=== PATIENT | female | born 1975 | race Caucasian/White ===

== ENCOUNTER 2019-11-27 04:21 | Inpatient (IN) | payer OTHER, MEDICARE, MEDICAID, SELFPAY ==
[2019-11-27] VITALS (11 sets, daily range): BP systolic 116–153; BP diastolic 43–106; PULSE 74–101; RESP 15–20; TEMP 36.7–38.6; O2SAT 97–99; BMI 20.9
--- NOTE | ~2019-11-27 | CT_ITS ---
EXAMINATION: CT brain wo con DATE: 11/28/2019 09:50 INDICATION: Persistent headache for 4 days TECHNIQUE: Computed tomography (CT) of the head was performed without intravenous contrast. The mA wa s adjusted according to patient size. Iterative reconstruction technique was employed. Exam dose: 60 5.33 mGy-cm total exam DLP. COMPARISON: None FINDINGS: No intracranial mass lesion or hemorrhage or cerebrovascular accident is evident. No midlin e shift or mass effect. Normal ventricular size. No subdural or epidural hematoma. No fracture or bone destruction of the cranial vault. The paranasal sinuses and mastoid air cells are normally developed and aerated. IMPRESSION: No significant abnormality Reviewed, dictated and finalized at [facility]. Reviewed, dictated and finalized at location [facility]. IMPRESSION: No significant abnormality
--- NOTE | ~2019-11-27 | US_ITS ---
EXAMINATION: US retroperitoneal comp DATE: 11/29/2019 09:23 INDICATION: Fever. Abdominal pain. TECHNIQUE: Multiple ultrasound grayscale images of the kidneys were obtained. COMPARISON: None. FINDINGS: The right kidney measures 13.6 x 4.5 x 5.7 cm without hydronephrosis The left kidney measures 10.7 x 6.1 x 5.8 cm. There is normal renal cortical echogenicity. The left renal cortex appears mildly thick ened relative to the left kidney with increased vascular flow at the hilum. There are focal very hypo echoic regions at the lower pole of the left kidney which could represent either edematous/necrotic m edullary pyramids or caliectasis without angelica hydronephrosis. No stones identified. The bladder is n ormal with clearly visualized bilateral ureteral jets on color Doppler. IMPRESSION: 1. Swollen and hyperemic left kidney suspicious for pyelonephritis. Central very hypoechoic regions at the lower pole could represent edematous/necrotic medullary pyramids or caliectasis without angelica hydronephrosis. 2. Normal right kidney. Reviewed, dictated and finalized at location A. IMPRESSION: 1. Swollen and hyperemic left kidney suspicious for pyelonephritis. Central ve ry hypoechoic regions at the lower pole could represent edematous/necrotic medu llary pyramids or caliectasis without angelica hydronephrosis. 2. Normal right kidney.
--- NOTE | ~2019-11-27 | CT_ITS ---
EXAMINATION: CT abdomen pelvis w con DATE: 11/27/2019 05:41 INDICATION: Left flank pain. History of kidney abscess, fever. TECHNIQUE: Computed tomography (CT) of the abdomen and pelvis was performed with 100 cc Omnipaque 350 intravenous contrast. Automated exposure control and iterative reconstruction technique were employe d. Exam dose: 252.44 mGy-cm total exam DLP. COMPARISON: None. FINDINGS: The lower lung zones are clear of infiltrate or consolidation. Normal heart size. No pericardial or pleural effusion. The liver, gallbladder, bile ducts, spleen, pancreas, pancreatic duct and adrenal glands appear ike l. Normal caliber of the abdominal aorta. There is a focal approximately 2.7 x 1.4 cm area of diminished enhancement in the anterolateral aspec t of the upper pole of the left kidney, likely an area of pyelonephritis. Uterine fibroids are noted. No intraperitoneal or retroperitoneal or pelvic mass lesion or adenopathy or ascites. No bowel obstru ction or intraperitoneal free air is evident. Degenerative disc disease is noted at L2-3 and L5-S1 in particular. Minimal retrolisthesis at L3-4. No suspicious osteolytic or osteoblastic lesions. IMPRESSION: Probable pyelonephritis the upper pole of the left kidney Uterine fibroids Reviewed, dictated and finalized at [facility]. Reviewed, dictated and finalized at location [facility].
--- NOTE | ~2019-11-27 | XR_ITS ---
XR chest 2V DATE: 11/27/2019 13:04 INDICATION: Cough TECHNIQUE: PA and lateral views COMPARISON: None FINDINGS: Normal heart size. No hilar or mediastinal enlargement. The lungs are hyperinflated but morgan ar of infiltrate or consolidation. No pleural effusion or pulmonary vascular congestion or pneumothor ax. IMPRESSION: Bilateral hyperinflation; no active cardiopulmonary disease Reviewed, dictated and finalized at location [facility].
--- NOTE | 2019-11-27 05:10 | ED.NAVMDI ---
HPI - Nausea/Vomiting/Diarrhea General Chief complaint: Nausea/Vomiting/Diarrhea Stated complaint: fever, vomiting, diarrhea, MURRY Time Seen by Provider: 11/27/19 05:03 History of Present Illness HPI Narrative: Patient presents with her boyfriend for nausea vomiting diarrhea, abdominal pain, and fever. Started 3 days ago, when she went home from work with a migraine headache. Progressed to vomiting and then diarrhea. She says that she just feels bad all over and hurts all over. She has a history of kidney infection with abscess and was hospitalized for 2-week. Surgeries tubal ligation. She smokes cigarettes. MD elicited complaint: nausea, vomiting and diarrhea Onset (ago): day(s) Related Data Allergies Allergy/AdvReac Type Severity Reaction Status Date / Time No Known Allergies Allergy Unknown Verified 06/16/04 18:38 Review of Systems Review of Systems: Narrative: CONSTITUTIONAL: She has fever. EYES: Denies visual changes, redness, or discharge. ENT: Denies rhinorrhea, congestion, sore throat, or otalgia. CARDIOVASCULAR: Denies chest pain, palpitations, or edema. RESPIRATORY: Denies cough or dyspnea. GASTROINTESTINAL: She has abdominal pain, nausea, vomiting, and diarrhea. GENITOURINARY: Denies dysuria or hematuria. SKIN: Denies rash or itching. MUSCULOSKELETAL: Denies back pain, joint pain NEUROLOGIC: Denies headache, numbness, or weakness. PSYCHIATRIC: Denies anxiety or depression. [facility] Past Medical History Medical History History of pyelonephritis Surgical History Surgical History History of tubal ligation Social History Social History (Updated 11/27/19 @ 05:13 by India Contreras MD) Smoking status: Current every day smoker Gender identity (if verbalized by the patient): Female Exam Narrative: Exam Narrative: GENERAL: Cachectic and in no acute distress. HEAD: Normocephalic, atraumatic. EYES: PERRLA and EOMI. ENT: Nares clear, no rhinorrhea or epistaxis. Mucous membranes dry. NECK: Supple. CHEST: Clear to auscultation. No respiratory distress. HEART: Regular rate and rhythm. No murmur heard. Normal peripheral pulses. ABDOMEN: Soft, nontender, nondistended, normal active bowel sounds. EXTREMITIES: Normal range of motion. No edema. SKIN: Warm, dry, no rash. NEURO: No focal deficits. Alert and oriented x3. PSYCH: Appears worried. Course Reevaluation(s) Reevaluation #1: Went in to see the patient and tell her about the pyelonephritis with possible abscess formation, and the plan to admit. She is already feeling much better with just the IV fluids and IV antibiotics. Date: 11/27/19 Time: 07:18 Consultations Consultation #1: Call Dr. Herrera for the admission and he request a urology consult. Date: 11/27/19 Time: 07:17 Consultation #2: Call Dr. Street and he agrees to consult. Date: 11/27/19 Time: 07:18 Vital Signs Vital signs: Vital Signs Temperature 101.5 F H 11/27/19 04:42 Pulse Rate 101 H 11/27/19 04:42 Respiratory Rate 20 11/27/19 04:42 Blood Pressure 153/106 H 11/27/19 04:42 Pulse Oximetry 98 11/27/19 04:42 Temperature 99.1 F 11/27/19 06:04 Pulse Rate 101 H 11/27/19 06:04 Respiratory Rate 18 11/27/19 06:04 Blood Pressure 128/87 11/27/19 06:04 Pulse Oximetry 99 11/27/19 06:04 MDM - Nausea/Vomiting/Diarrhea Medical Records Attestation: I reviewed the patient's medical records. Lab Data Attestation: I reviewed the patient's lab results. Result diagrams: 11/27/19 05:22 11/27/19 05:31 Labs: Lab Results 11/27/19 11/27/19 11/27/19 Range/Units 05:22 05:22 05:22 WBC 28.2 H (4.5-10.0) K/mm3 RBC 4.08 L (4.2-5.4) M/mm3 Hgb 12.5 (12.0-15.0) g/dL Hct 36.8 L (37.0-47.0) % MCV 90.2 (80-100) fl MCH 30.6 (26-34) pg MCHC 34.0 (32-36) g/dl RDW 13.5 (11.5-14.5) % Plt Count 298 (150-375)
[2019-11-27] MEDS: MORPHINE SULFATE 4 MG/ML INJ IV PUSH (05:21)
--- NOTE | 2019-11-27 05:25 | PC.NURSE ---
Just taken down to CT.
[2019-11-27 05:32] LABS: Estimated CRCL calculation 118 ml/min; Estimated Glomerular Filt Rate > 60
[2019-11-27 05:33] LABS: Basophils Absolute Auto 0.1 K/mm3 (0.0-0.1); Basophils Percent Auto 0.5 % (0.2-1.2); Hematocrit 36.8 % (37.0-47.0); Hemoglobin 12.5 g/dL (12.0-15.0); Immature Granulocyte Absolute 0.24 K/mm3 (0.00-0.031); Immature Granulocyte Percent A 0.9 % (0-0.5); Lymphocytes Absolute Auto 1.55 K/mm3 (0.9-3.2); Lymphocytes Percent Auto 5.5 % (18.3-44.2); Mean Corpuscular Hemoglobin 30.6 pg (26-34); Mean Corpuscular Volume 90.2 fl (80-100); Mean Platelet Volume 10.8 fl (7.4-10.4); Monocytes Absolute Auto 1.8 K/mm3 (0.1-0.6); Monocytes Percent Auto 6.5 % (2.6-8.5); Neutrophils Absolute Auto 24.4 K/mm3 (1.3-6.7); Neutrophils Percent Auto 86.6 % (45.5-73.1); Platelet Count Result 298 k/mm3 (150-375); Red Blood Count 4.08 M/mm3 (4.2-5.4); Red Cell Distribution Width 13.5 % (11.5-14.5); White Blood Count 28.2 K/mm3 (4.5-10.0)
[2019-11-27 05:37] LABS: Add Urine Microscopic? YES; Appearance Urine Cloudy (Clear); Bacteria Urine 1+ /hpf; Bilirubin Urine Negative (Negative); Blood Urine 2+ (Negative); Color Urine Yellow (Yellow); Glucose Urine UA Negative (Negative); Ketones Urine 1+ mg/dL (Negative); Leukocyte Esterase Ur 3+ LEU/UL (Negative); Mucus Urine Heavy /lpf; Nitrate Urine Positive (Negative); Protein Urine 2+ mg/dL (Negative); RBC Urine >75 /hpf (0-2); Specific Grav Ur 1.016 (1.001-1.035); Squamous Epithelial Cell Urine Many /hpf (Few); Urobilinogen Urine Negative mg/dL (<2.0); WBC Clumps Urine Present /HPF; WBC Urine >75 /hpf
[2019-11-27 05:41] LABS: Alanine Aminotransferase 14 U/L (4-35); Albumin Level 4.3 g/dL (3.5-5.1); Alkaline Phosphatase 96 U/L (38-126); Aspartate Amino Transferase 23 U/L (14-36); Bilirubin,Total 0.6 mg/dL (0.2-1.3); Blood Urea Nitrogen 5 mg/dL (7-17); Calcium 8.8 mg/dL (8.4-10.2); Carbon Dioxide 29 mmol/L (22-30); Chloride 96 mmol/L (98-107); Estimated CRCL calculation 143 ml/min; Estimated Glomerular Filt Rate > 60; Glucose 111 mg/dL (65-105); Lipase 58 U/L (23-300); Potassium 3.1 mmol/L (3.4-5.0); Sodium 133 mmol/L (137-145)
[2019-11-27] MEDS: SODIUM CHLORIDE 0.9% IV 1,000 ML 999 ML IV CONT (06:00)
--- NOTE | 2019-11-27 07:14 | PC.NURSE ---
This nurse has given report to SCHUYLER Hurst.
--- NOTE | 2019-11-27 08:47 | ADMGEN ---
This patient, Ange Hahn, was admitted to 2 Medical Room 251-01. Patient/family oriented to hospital policies and general routines including ID bracelet, bed and alarms, visiting hours, pain management, procedures, bathroom and other care routines, personal items, smoking policy, room service/diet, and visiting hours. Valuables list has been completed. Information on how to activate the Rapid Response Team has been discussed. Patient/Family are encouraged to report perceived risks to care and to ask questions if they do not understand what they are told or what they should do. Report received from SCHUYLER uHrst.
[2019-11-27] MEDS: SODIUM CHLORIDE 0.9% IV 1,000 ML 125 ML IV CONT ×2 (08:52→17:19)
[2019-11-27] MEDS: ONDANSETRON INJ 4 MG/2 ML VIAL IV PUSH ×2 (10:19→16:18)
[2019-11-27] MEDS: POTASSIUM CHLORIDE 20 MEQ TABLET 40 MEQ PO (10:29)
[2019-11-27 10:54] LABS: Lactic Acid Reflex 1.7 mmol/L (0.7-2.1)
--- NOTE | 2019-11-27 11:08 | PM.IMHP ---
H&P: HPI History of Present Illness Chief complaint: Fever, abdominal pain Narrative: Date of Service 11/27/19 [id number] This supervising physician for this history and physical is Dr. Arleth Brooks. Ange Hahn is a 44 year old female who presented to the ED for evaluation abdominal pain, fevers, nausea and vomiting. She describes that she was in her normal state of health up until 2 days ago with fever of 101.5, fatigue, and onset of sharp left-sided abdominal pain that radiated to her back. She also described associated nausea and vomiting since . She has not been eating or drinking much over last 2 days because of this. She describes a productive cough with some clear phlegm that also began 2 days ago. She denies any chest pain or shortness of breath. She has also had a headache over the last 2 days notes a history of migraine headaches. She describes that her abdominal pain on her left side has been persistent and worsening. 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 She tells me she gets her temperature checked when she gets to work and on was 101.5. She has no other known exposure to COVID positive persons and has not traveled recently. She described when she was younger in 1991, she was hospitalized for almost 2 weeks for abscessed kidney or kidney infection . She notes that over several years, she gets a urinary tract infection about once every 6 months which have been treated as an outpatient by PCP. She describes she has never seen a urologist for her frequent UTIs. No recent antibiotic use. CT abdomen/pelvis demonstrates evidence consistent with pyelonephritis the upper pole of the left kidney, uterine fibroids. Urinalysis on arrival is grossly abnormal with positive nitrite, 3+ leukocyte esterase, > 75 WBC, > 75 RBC. Temp 101.5? in the ED. Routine labs demonstrated leukocytosis 28,200; mild hyponatremia; hypokalemia 3.1. Urine was sent for culture and she was given IV Rocephin and IV Zosyn in the ED. Blood cultures obtained once she got to the floor after antibiotics were started. Urology has been consulted from the ED. She is admitted for management of acute pyelonephritis. Review of Systems Review of Systems: Narrative: She describes left-sided abdominal/flank pain that radiates to her back has improved with pain medications. She describes a headache that has improved after she has received some IV fluids. She reports a mild productive cough without chest pain or shortness of breath. She was having nausea and vomiting over the last 2 days but no vomiting so far this morning. She denies dizziness. Twelve systems were reviewed with pertinent positives and negatives as per HPI. Except as documented, all other systems were reviewed and are negative. [facility] Past Medical History Medical History (Updated 11/27/19 @ 17:31 by Bri Serna PA-C) History of pyelonephritis In 1991 Surgical History Surgical History (Updated 11/27/19 @ 11:21 by Bri Serna PA-C) History of tubal ligation 2000 Family History Family History (Updated 11/27/19 @ 11:23 by Bri Serna PA-C) Mother Kidney abscess Father Hypertension CHF (congestive heart failure) Acute myocardial infarction Passed of acute [place] at age 63; previous to 5 vessel CABG. Social History Social History (Updated 11/27/19 @ 11:34 by Bri Serna PA-C) Social History: Ms. Hahn lives at [place] and [facility] with her and daughter. 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 She denies alcohol use. Formally smoked one-half pack per day of cigarettes times 10 years, now smokes 1 cigarette maybe every 2 weeks. She uses marijuana in edible form about once per week. No other substance use. Her PCP is Dr. Flower. She designates her , Demarcus, as her surrogate decision maker and she is full code status. Smoking packs per day: 0.5 Smoking cigarettes per day:
[2019-11-27] MEDS: MORPHINE SULFATE 2 MG/ML INJ IV PUSH ×2 (13:57→20:28)
[2019-11-27] MEDS: ACETAMINOPHEN 325 MG TABLET 650 MG PO (17:58)
[2019-11-27] MEDS: NICOTINE (*PBKC) 14 MG PATCH 1 PATCH TRANSDERM (21:39)
[2019-11-28] VITALS (13 sets, daily range): BP systolic 112–136; BP diastolic 57–87; PULSE 75–100; RESP 16–18; TEMP 36.4–37.7; O2SAT 94–99
[2019-11-28] MEDS: ONDANSETRON INJ 4 MG/2 ML VIAL IV PUSH ×2 (02:02→09:21)
[2019-11-28] MEDS: ACETAMINOPHEN 325 MG TABLET 650 MG PO (02:02)
[2019-11-28 04:47] LABS: Hematocrit 32.9 % (37.0-47.0); Mean Corpuscular HGB Conc 33.4 g/dl (32-36); Mean Corpuscular Hemoglobin 30.8 pg (26-34); Mean Corpuscular Volume 92.2 fl (80-100); Mean Platelet Volume 10.2 fl (7.4-10.4); Platelet Count Result 256 k/mm3 (150-375); Red Blood Count 3.57 M/mm3 (4.2-5.4); Red Cell Distribution Width 13.4 % (11.5-14.5); White Blood Count 21.5 K/mm3 (4.5-10.0)
[2019-11-28 05:03] LABS: Blood Urea Nitrogen 2 mg/dL (7-17); Calcium 8.6 mg/dL (8.4-10.2); Carbon Dioxide 31 mmol/L (22-30); Chloride 100 mmol/L (98-107); Estimated CRCL calculation 141 ml/min; Estimated Glomerular Filt Rate > 60; Glucose 105 mg/dL (65-105); Magnesium 2.1 mg/dL (1.6-2.3); Phosphorus 3.7 mg/dL (2.5-4.5); Sodium 134 mmol/L (137-145)
[2019-11-28] MEDS: SODIUM CHLORIDE 0.9% IV 1,000 ML 125 ML IV CONT (05:07)
[2019-11-28] MEDS: MORPHINE SULFATE 2 MG/ML INJ IV PUSH (05:11)
[2019-11-28] MEDS: POTASSIUM CHLORIDE 20 MEQ TABLET 60 MEQ PO (08:41)
[2019-11-28] MEDS: NICOTINE (*PBKC) 14 MG PATCH 1 PATCH TRANSDERM (08:41)
--- NOTE | 2019-11-28 09:38 | PM.IMPN ---
Progress Note: A&P Assessment and Plan (1) Pyelonephritis: Code(s): N12 - Tubulo-interstitial nephritis, not specified as acute or chronic Status: Acute Assessment and Plan: Grossly abnormal urinalysis and CT findings consistent with acute pyelonephritis. Discussed with radiologist yesterday who describes an small spot in question resembles an area of pyelonephritis and no fluid collection or abscess formation is appreciated. Continue broad-spectrum antibiotics with IV Zosyn with urine and blood cultures pending. Continue supportive care with IV hydration, antiemetics, antipyretics. Urology consulted - appreciate recommendations. (2) Sepsis: Code(s): A41.9 - Sepsis, unspecified organism Status: Acute Assessment and Plan: Sepsis criteria is met on arrival with leukocytosis, fever, mild tachycardia. Suspected source is urinary, see above. WBC improving. Monitor vital signs and urine output. (3) Hypokalemia: Code(s): E87.6 - Hypokalemia Status: Acute Assessment and Plan: Potassium 3.0 and replaced. Magnesium is normal. Will monitor. (4) Headache: Code(s): R51 - Headache Status: Acute Assessment and Plan: May be related to acute illness/dehydration, but since has been persistent without much relief will obtain CT brain to ensure no other etiology. Negative meningeal signs, no focal deficits, no dizziness. Continue supportive care. Edit: CT brain with no acute intracranial abnormalities. Subjective Date/time seen: 11/28/19 09:00 Interval history: Ms. Hahn is a 44yo F admitted for acute pyelonephritis. She reports feeling nauseous this morning but was able to eat a little breakfast. Some dry heaving last night. Overall she is feeling poorly but says she feels improved compared to yesterday. She denies chest pain or shortness of breath. She notices she is wheezing and feels like she has mucus she needs to cough out. Her L flank pain is a little better than yesterday. She describes a headache that has been constant over the last 4 days and not really improving. No vision changes, dizziness, or focal weakness. Review of Systems Review of Systems: Narrative: Twelve systems were reviewed with pertinent positives and negatives as per HPI. Exam Narrative: Exam Narrative: General: Female resting in bed in no acute distress. HEENT: Normocephalic, atraumatic, EOMI, PERRL, oral mucosa moist. Neck: Supple. Negative meningeal signs. Chest: Expiratory wheezes JUDITH, good air movement, respirations are even and nonlabored. Tolerating room air. Heart: Rate and rhythm regular. Abdomen: Soft, non-distended, tenderness to palpation of left flank without guarding, bowel sounds present. CVA tenderness left +. Extremities: Peripheral pulses intact. No edema, clubbing, or cyanosis. Neurologic: Alert and oriented. Speech is clear. No focal neurological deficits appreciated. Objective Data Vital Signs Vital Signs: Last Vital Signs Temp 98.3 F 11/28/19 05:58 Pulse 88 11/28/19 05:58 Resp 16 11/28/19 05:58 BP 128/71 11/28/19 05:58 Pulse Ox 99 11/28/19 05:58 Intake/Output Intake/Output: Intake & Output 11/25/19 11/26/19 11/27/19 11/28/19 23:59 23:59 23:59 23:59 Intake Total 4960 1750 Output Total 600 900 Balance 4360 850 Meds/Results Medications: Active Medications Generic Name Dose Route Start Last Admin Trade Name Freq PRN Reason Stop Dose Admin Acetaminophen 650 mg 11/27/19 10:11/28/19 02:02 Tylenol Tablet PO 650 mg Q4H PRN Administration Mild Pain (1-3) or Fever Hydrocodone Bitart/Acetaminophen 1 tab 11/27/19 10:02 11/27/19 10:19 [place] 5-325 Mg PO 1 tab Q4H PRN Administration Pain Rated 4-6 Albuterol 2.5 mg 11/28/19 14:00 Albuterol Sulf Neb 2.5mg/0.5ml INHALATIO
[2019-11-28] MEDS: ALBUTEROL SULFATE NEB 2.5 MG/0.5 ML INH INHALATION (14:46)
--- NOTE | 2019-11-28 15:24 | WPDURCON ---
Assessment and Plan Additional Plan Continue antibiotics . Await sensitivities. WBC is falling so she will not likely need a percutaneous drainage procedure. I have ordered a renal u/s for Friday to show us if the lobar nephronia is resolving Urology Consult Note HPI Date Seen: 11/28/19 Requesting Physician: Tereso Herrera MD Primary Care Provider: Neal Flower, MD Consult Narrative Narrative: Ange Hahn is a 44 year old female with left flank pain and UTI. CT shows abnormal flow to parenchyma. n 1991 she had a renal abscess and saw Perinetti at [place]. Left kidney that time also. Admitted with WBC 28K Review of Systems Constitutional: Constitutional: Reports chills, Denies fatigue and Denies weakness Eyes: Eyes: Reports no additional eye complaints ENT: Denies nasal congestion Cardiovascular: Cardiovascular: Reports no additional cardiovascular complaints Respiratory: Respiratory: Reports no additional respiratory complaints Gastrointestinal: Gastrointestinal: Reports no additional gastrointestinal complaints Genitourinary: Genitourinary: Reports flank pain and Denies urinary incontinence [facility] Past Medical History Medical History (Updated 11/28/19 @ 09:43 by Bri Serna PA-C) History of pyelonephritis In 1991 Surgical History Surgical History (Updated 11/27/19 @ 11:21 by Bri Serna PA-C) History of tubal ligation 2000 Family History Family History (Updated 11/27/19 @ 11:23 by Bri Serna PA-C) Mother Kidney abscess Father Hypertension CHF (congestive heart failure) Acute myocardial infarction Passed of acute [place] at age 63; previous to 5 vessel CABG. Social History Social History (Updated 11/27/19 @ 11:34 by Bri Serna PA-C) Social History: Ms. Hahn lives at home and [facility] with her and daughter. 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 She denies alcohol use. Formally smoked one-half pack per day of cigarettes times 10 years, now smokes 1 cigarette maybe every 2 weeks. She uses marijuana in edible form about once per week. No other substance use. Her PCP is Dr. Flower. She designates her , Demarcus, as her surrogate decision maker and she is full code status. Smoking packs per day: 0.5 Smoking cigarettes per day: 10.0 Years smoked: 6 Smoking pack-years: 3.00 Smoking status: Current some day smoker Tobacco type: cigarettes and e-cigarettes/vaping Alcohol intake: never Substance use: current Substance use type: marijuana Living arrangements: with family Gender identity (if verbalized by the patient): Female Spiritual care concerns: No Meds Home Medications and Allergies Home Medications Medication Instructions Recorded Confirmed Type multivit with min-folic acid 1 mcg PO BID 11/27/19 11/27/19 History [Adult Multivitamin Gummies] Allergies Allergy/AdvReac Type Severity Reaction Status Date / Time No Known Allergies Allergy Unknown Verified 06/16/04 18:38 Vital Signs Vital Signs - 24 hr 11/27/19 17:49 11/27/19 17:58 11/27/19 18:00 Temperature 38.2 C H 38.2 C H Pulse Rate 92 Respiratory Rate 16 Blood Pressure 125/77 Pulse Oximetry 98 11/27/19 18:53 11/27/19 19:03 11/27/19 22:03 Temperature 37.8 C H 37.8 C H 36.7 C Pulse Rate 74 Respiratory Rate 18 Blood Pressure 128/82 Pulse Oximetry 97 11/28/19 02:00 11/28/19 02:02 11/28/19 03:02 Temperature 37.7 C H 37.7 C H 36.9 C Pulse Rate 100 Respiratory Rate 18 Blood Pressure 134/87 Pulse Oximetry 97 11/28/19 03:04 11/28/19 05:58 11/28/19 10:00 Temperature 36.9 C 36.8 C 36.8 C Pulse Rate 88 84 Respiratory Rate 16 17 Blood Pressure 128/71 136/81 Pulse Oximetry 99 97 11/28/19 14:00 11/28/19 14:48 11/28/19 14:54 Temperature 36.4 C Pulse Rate 83 77 80 Respiratory Rate 16 18 18 Blood Pressure 112/57 L Pulse Oximetry 94 Exam Const: General:
[2019-11-28] MEDS: SODIUM CHLORIDE 0.9% IV 1,000 ML 100 ML IV CONT (15:37)
--- NOTE | 2019-11-28 15:47 | PC.NURSE ---
The patient needs to be NPO for 8-12 hours before the US. Will make patient NPO after midnight and may resume diet after US per Dr. Street.
--- NOTE | 2019-11-28 20:50 | CONS_ITS ---
DATE OF CONSULTATION: HISTORY OF PRESENT ILLNESS: This is a patient familiar over [facility]. She has also been treated at [place] by Dr. Yip for renal abscess 30 years ago. At the present time, [place] [address], and fever with left flank pain. Her CT scan revealed an abnormal area of diminished enhancement in the upper pole of the left kidney. In 1991, she had a similar episode that ultimately did not require drainage, but it was the left kidney then as well. She has urine culture pending at this time and is not currently febrile. She is feeling much better. Her white count has fallen to 21,000 today. Urology was consulted in case of the lobar nephronia turns to abscess, so we could initiate a drainage procedure by Interventional Radiology. PAST SURGICAL HISTORY: Tubal ligation. FAMILY HISTORY: Positive for kidney abscess in her mother, congestive heart failure in her father, myocardial infarction in her father, hypertension in her father and additionally, Dr. Lovett worked on him a number of times. She estimated 20 different bladder tumor surgeries. SOCIAL HISTORY: She lives in [place] with her and daughter. 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 She smokes about 1 cigarette every 2 weeks now. She has edible marijuana. Please see her written note for further details. PHYSICAL EXAMINATION: GENERAL: Pleasant white female, in no distress. Oriented with appropriate affect. HEENT: Extraocular movements are intact. No skin lesions. No peripheral edema. LUNGS: Respirations even and nonlabored. ABDOMEN: Benign. She does have significant left-sided costovertebral angle tenderness at this time. There is no right-sided costovertebral angle tenderness. The abdomen is benign. IMAGING DATA: CT is reviewed as are the labs. CURRENT MEDICINES: Zosyn. She takes Nicoderm patches. She is on guanfacine and albuterol. She has p.r.n. hydrocodone. IMPRESSION: This woman is admitted with a left flank pain, probably a severe pyelo. 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 PLAN: We will schedule repeat imaging study with an ultrasound tomorrow to be sure this is not abscessed, but she seems to be clinically improving with IV fluids and antibiotics. Her white count is falling and I presume we will have something we can put her on as far as an oral antibiotic when she goes home. I will alert Dr. Lovett to her present scene and he can see her tomorrow that is Friday. MANNIE BROWN M.D. CUTTER GAS CUTTER GAS D I [place]: [place]
[2019-11-29] VITALS (10 sets, daily range): BP systolic 126–139; BP diastolic 78–91; PULSE 52–89; RESP 16–20; TEMP 36.8–37.3; O2SAT 98–100
[2019-11-29] MEDS: ONDANSETRON INJ 4 MG/2 ML VIAL IV PUSH ×3 (01:39→20:04)
[2019-11-29] MEDS: MORPHINE SULFATE 2 MG/ML INJ IV PUSH ×2 (01:39→09:30)
[2019-11-29] MEDS: SODIUM CHLORIDE 0.9% IV 1,000 ML 100 ML IV CONT (01:47)
[2019-11-29 04:34] LABS: Basophils Percent Auto 0.2 % (0.2-1.2); Eosinophils Percent Auto 0.2 % (0-4.4); Hematocrit 28.6 % (37.0-47.0); Hemoglobin 9.7 g/dL (12.0-15.0); Immature Granulocyte Absolute 0.05 K/mm3 (0.00-0.031); Immature Granulocyte Percent A 0.3 % (0-0.5); Lymphocytes Absolute Auto 1.93 K/mm3 (0.9-3.2); Lymphocytes Percent Auto 13.2 % (18.3-44.2); Mean Corpuscular HGB Conc 33.9 g/dl (32-36); Mean Corpuscular Hemoglobin 30.6 pg (26-34); Mean Corpuscular Volume 90.2 fl (80-100); Mean Platelet Volume 10.3 fl (7.4-10.4); Monocytes Absolute Auto 1.7 K/mm3 (0.1-0.6); Monocytes Percent Auto 11.5 % (2.6-8.5); Neutrophils Absolute Auto 10.9 K/mm3 (1.3-6.7); Neutrophils Percent Auto 74.6 % (45.5-73.1); Platelet Count Result 223 k/mm3 (150-375); Red Blood Count 3.17 M/mm3 (4.2-5.4); Red Cell Distribution Width 13.4 % (11.5-14.5); White Blood Count 14.7 K/mm3 (4.5-10.0)
[2019-11-29 05:03] LABS: Calcium 7.8 mg/dL (8.4-10.2); Carbon Dioxide 29 mmol/L (22-30); Chloride 100 mmol/L (98-107); Estimated CRCL calculation 141 ml/min; Estimated Glomerular Filt Rate > 60; Glucose 103 mg/dL (65-105); Magnesium 1.9 mg/dL (1.6-2.3); Potassium 2.8 mmol/L (3.4-5.0); Sodium 134 mmol/L (137-145)
[2019-11-29 05:07] LABS: Blood Urea Nitrogen < 2 mg/dL (7-17)
[2019-11-29] MEDS: ALBUTEROL SULFATE NEB 2.5 MG/0.5 ML INH INHALATION (08:05)
[2019-11-29] MEDS: NICOTINE (*PBKC) 14 MG PATCH 1 PATCH TRANSDERM (09:26)
[2019-11-29 11:39] LABS: Potassium 2.9 mmol/L (3.4-5.0)
--- NOTE | 2019-11-29 13:03 | PM.IMPN ---
Progress Note: A&P Assessment and Plan (1) Pyelonephritis: Code(s): N12 - Tubulo-interstitial nephritis, not specified as acute or chronic Status: Acute Assessment and Plan: CT findings consistent with acute pyelonephritis. Continue IV Zosyn; urine culture grew E coli; blood cultures pending with no growth to date. Continue supportive care with antiemetics, Tylenol for fever. Urology consulted - appreciate recommendations. Ultrasound noted. (2) Sepsis: Qualifiers: Sepsis acute organ dysfunction status: unspecified Sepsis type: sepsis due to unspecified organism Qualified Code(s): A41.9 - Sepsis, unspecified organism Code(s): A41.9 - Sepsis, unspecified organism Status: Acute Assessment and Plan: Sepsis criteria is met on arrival with leukocytosis, fever, mild tachycardia. Suspected source is urinary, see above. WBC improving. Monitor vital signs and urine output. (3) Hypokalemia: Code(s): E87.6 - Hypokalemia Status: Acute Assessment and Plan: Potassium 2.8 this morning and replaced IV and PO. Repeat again this afternoon. Subjective Date/time seen: 11/29/19 1215 Interval history: Ms. Hahn is a 44yo F admitted for acute pyelonephritis. Still having significant left flank/CVA tenderness now improved this afternoon with some morphine. She had some more mild nausea this morning without vomiting now improved after zofran. She thinks her wheezing has improved some. Her headache has improved. Review of Systems Review of Systems: Narrative: Twelve systems were reviewed with pertinent positives and negatives as per HPI. Exam Narrative: Exam Narrative: General: Female resting in bed in no acute distress. HEENT: Normocephalic, atraumatic, EOMI, oral mucosa moist. Neck: Supple. Negative meningeal signs. Chest: Expiratory wheezes JUDITH improved from yesterday, good air movement, respirations are even and nonlabored. Tolerating room air. Heart: Rate and rhythm regular. Abdomen: Soft, non-distended, tenderness to palpation of left flank without guarding, bowel sounds present. CVA tenderness left +. Extremities: Peripheral pulses intact. No edema, clubbing, or cyanosis. Neurologic: Alert and oriented. Speech is clear. No focal neurological deficits appreciated. Objective Data Vital Signs Vital Signs: Last Vital Signs Temp 99.2 F 11/29/19 10:00 Pulse 82 11/29/19 10:00 Resp 18 11/29/19 10:00 BP 136/91 H 11/29/19 10:00 Pulse Ox 99 11/29/19 10:00 Intake/Output Intake/Output: Intake & Output 11/26/19 11/27/19 11/28/19 11/29/19 23:59 23:59 23:59 23:59 Intake Total 4960 4733 1662 Output Total 600 2525 1150 Balance 4360 2208 512 Meds/Results Medications: Active Medications Generic Name Dose Route Start Last Admin Trade Name Freq PRN Reason Stop Dose Admin Acetaminophen 650 mg 11/27/19 10:02 11/28/19 02:02 Tylenol Tablet PO 650 mg Q4H PRN Administration Mild Pain (1-3) or Fever Hydrocodone Bitart/Acetaminophen 1 tab 11/27/19 10:02 11/28/19 17:04 Eleele 5-325 Mg PO 1 tab Q4H PRN Administration Pain Rated 4-6 Albuterol 2.5 mg 11/28/19 14:00 11/29/19 08:05 Albuterol Sulf Neb 2.5mg/0.5ml INHALATION 2.5 mg Q6HRT MARISSA Administration Guaifenesin 600 mg 11/28/19 09:10 11/29/19 09:26 Mucinex 12 Hr Tab PO 600 mg Q12HR MARISSA Administration Sodium Chloride 1,000 mls @ 100 mls/hr 11/27/19 07:15 11/29/19 01:47 Normal Saline Iv IV CONT 100 mls/hr .Q10H MARISSA Administration Piperacillin/Tazobactam/Dextrose 3.375 gm in 50 mls @ 100 mls/hr 11/27/19 12:00 11/29/19 11:42 Zosyn 3.375 Gm/D5w 50ml Pm IVPB Infused Q6HR MARISSA Infusion Morphine Sulfate 2 mg 11/27/19 10:02 11/29/19 09:30 Morphine Sulfate Inj IV PUSH 2 mg Q4H PRN Administration Pain Rated 7-10 Nicotine 1 p
--- NOTE | 2019-11-29 13:06 | WPDUROPN2 ---
Progress Note: A&P Assessment and Plan (1) Pyelonephritis: Code(s): N12 - Tubulo-interstitial nephritis, not specified as acute or chronic Status: Acute Assessment and Plan: Urine culture: e. coli / blood cultures: no growth thus far Fever and leukocytosis responding nicely. If blood cultures remain neg., possibly home Tue. on FQ x10 days. Subjective Subjective Date/Time Seen: 11/29/19 13:06 Left flank pain Review of Systems Constitutional: Constitutional: Denies chills, Denies fatigue, Denies fever(s) and Denies headache(s) Eyes: Eyes: Denies blurry vision ENT: Denies vertigo, Denies dizziness, Denies headache(s) and Denies sore throat Cardiovascular: Cardiovascular: Denies chest pain, Denies syncope, Denies lightheadedness, Denies palpitations, Denies dyspnea and Denies dyspnea on exertion Respiratory: Respiratory: Denies hemoptysis, Denies dyspnea and Denies dyspnea on exertion Gastrointestinal: Gastrointestinal: Denies melena, Denies bloating, Denies hematochezia, Denies change in bowel habits, Denies change in stool character, Denies constipation, Denies diarrhea and Denies vomiting Genitourinary: Genitourinary: Denies hematuria, Denies urinary frequency, Denies dysuria, Denies urinary hesitancy and Denies urinary urgency Integumentary/Breasts: Skin/Breast: Denies pruritus, Denies lesions and Denies rash Neurologic: Denies confusion, Denies vertigo, Denies dizziness, Denies syncope and Denies headache(s) Psychiatric: Psychiatric: Denies anxiety, Denies change in appetite and Denies confusion Endocrine: Endocrine: Denies fatigue and Denies palpitations Exam Const: General: no acute distress Resp: Effort & Inspection: normal respiratory effort GI: Inspection: non-distended GI Palp: No abdominal tenderness and No Guarding due to palpation present (GI) Auscultation: normal bowel sounds Objective Data Vital Signs Vital Signs: Vital Signs - 24 hr 11/28/19 14:00 11/28/19 14:48 11/28/19 14:54 Temperature 97.6 F Pulse Rate 83 77 80 Respiratory Rate 16 18 18 Blood Pressure 112/57 L Pulse Oximetry 94 11/28/19 18:00 11/28/19 20:30 11/28/19 20:37 Temperature 98.7 F Pulse Rate 85 77 79 Respiratory Rate 17 18 18 Blood Pressure 126/70 Pulse Oximetry 98 11/28/19 21:41 11/29/19 01:51 11/29/19 05:43 Temperature 98.3 F 98.3 F 98.7 F Pulse Rate 75 52 L 72 Respiratory Rate 16 18 16 Blood Pressure 125/79 137/78 126/81 Pulse Oximetry 98 98 99 11/29/19 08:05 11/29/19 08:15 11/29/19 10:00 Temperature 99.2 F Pulse Rate 73 77 82 Respiratory Rate 18 18 18 Blood Pressure 136/91 H Pulse Oximetry 99 Intake/Output Intake/Output: Intake & Output 11/26/19 11/27/19 11/28/19 11/29/19 23:59 23:59 23:59 23:59 Intake Total 4960 4733 1662 Output Total 600 2525 1150 Balance 4360 2208 512 Meds/Results Medications: Active Medications Generic Name Dose Route Start Last Admin Trade Name Freq PRN Reason Stop Dose Admin Acetaminophen 650 mg 11/27/19 10:02 11/28/19 02:02 Tylenol Tablet PO 650 mg Q4H PRN Administration Mild Pain (1-3) or Fever Hydrocodone Bitart/Acetaminophen 1 tab 11/27/19 10:02 11/28/19 17:04 [place] 5-325 Mg PO 1 tab Q4H PRN Administration Pain Rated 4-6 Albuterol 2.5 mg 11/28/19 14:00 11/29/19 08:05 Albuterol Sulf Neb 2.5mg/0.5ml INHALATION 2.5 mg Q6HRT MARISSA Administration Guaifenesin 600 mg 11/28/19 09:10 11/29/19 09:26 Mucinex 12 Hr Tab PO 600 mg Q12HR MARISSA Administration Sodium Chloride 1,000 mls @ 100 mls/hr 11/27/19 07:15 11/29/19 01:47 Normal Saline Iv IV CONT 100 mls/hr .Q10H MARISSA Administration Piperacillin/Tazobactam/Dextrose 3.375 gm in 50 mls @ 100 mls/hr 11/27/19 12:00 11/29/19 11:42 Zosyn 3.375 Gm/D5w 50ml Pm IVPB Infused Q6HR MARISSA Infusion Morphine Sulfate 2 mg 11/27/19 10:02 11/29/19 09:30 Morphine Sulfate Inj IV PUSH 2 mg Q4H PRN A
[2019-11-29] MEDS: POTASSIUM CHLORIDE 20 MEQ TABLET 60 MEQ PO (14:08)
[2019-11-29 15:59] LABS: Potassium 2.9 mmol/L (3.4-5.0)
[2019-11-30] VITALS: BP 129/72; PULSE 75; RESP 18; TEMP 37.1; O2SAT 99
[2019-11-30 04:00] VITALS: BP 134/88; PULSE 86; RESP 18; TEMP 37.4; O2SAT 96
[2019-11-30 05:57] LABS: Basophils Absolute Auto 0.1 K/mm3 (0.0-0.1); Basophils Percent Auto 0.4 % (0.2-1.2); Eosinophils Absolute Auto 0.1 K/mm3 (0-0.3); Eosinophils Percent Auto 0.5 % (0-4.4); Hematocrit 32.6 % (37.0-47.0); Hemoglobin 10.9 g/dL (12.0-15.0); Immature Granulocyte Absolute 0.05 K/mm3 (0.00-0.031); Immature Granulocyte Percent A 0.4 % (0-0.5); Lymphocytes Absolute Auto 1.66 K/mm3 (0.9-3.2); Lymphocytes Percent Auto 12.4 % (18.3-44.2); Mean Corpuscular HGB Conc 33.4 g/dl (32-36); Mean Corpuscular Hemoglobin 30.6 pg (26-34); Mean Corpuscular Volume 91.6 fl (80-100); Mean Platelet Volume 10.6 fl (7.4-10.4); Monocytes Absolute Auto 1.4 K/mm3 (0.1-0.6); Monocytes Percent Auto 10.4 % (2.6-8.5); Neutrophils Absolute Auto 10.2 K/mm3 (1.3-6.7); Neutrophils Percent Auto 75.9 % (45.5-73.1); Platelet Count Result 295 k/mm3 (150-375); Red Blood Count 3.56 M/mm3 (4.2-5.4); Red Cell Distribution Width 13.3 % (11.5-14.5); White Blood Count 13.4 K/mm3 (4.5-10.0)
[2019-11-30 06:20] LABS: Calcium 8.5 mg/dL (8.4-10.2); Carbon Dioxide 27 mmol/L (22-30); Chloride 101 mmol/L (98-107); Estimated CRCL calculation 116 ml/min; Estimated Glomerular Filt Rate > 60; Glucose 146 mg/dL (65-105); Magnesium 1.9 mg/dL (1.6-2.3); Phosphorus 3.9 mg/dL (2.5-4.5); Potassium 3.3 mmol/L (3.4-5.0); Sodium 133 mmol/L (137-145)
[2019-11-30 06:22] LABS: Blood Urea Nitrogen < 2 mg/dL (7-17)
[2019-11-30] MEDS: POTASSIUM CHLORIDE 20 MEQ TABLET 40 MEQ PO (08:56)
[2019-11-30] MEDS: NICOTINE (*PBKC) 14 MG PATCH 1 PATCH TRANSDERM (08:56)
[2019-11-30 10:00] VITALS: BP 108/87; PULSE 88; RESP 16; TEMP 37; O2SAT 96
--- NOTE | 2019-11-30 10:55 | PM.DS ---
DS: Admitting Diagnosis Admitting Diagnosis Admitting Diagnosis: Sepsis, unspecified organism DS: Discharge Diagnosis Discharge Diagnosis (1) Pyelonephritis: Code(s): N12 - Tubulo-interstitial nephritis, not specified as acute or chronic Status: Acute (2) Sepsis: Qualifiers: Sepsis acute organ dysfunction status: unspecified Sepsis type: sepsis due to unspecified organism Qualified Code(s): A41.9 - Sepsis, unspecified organism Code(s): A41.9 - Sepsis, unspecified organism Status: Acute (3) Hypokalemia: Code(s): E87.6 - Hypokalemia Status: Acute DS: Summary Hospital Course Reason for hospitalization: Pyelonephritis Hospital Course: Patient is a 44-year-old female who presented emergency room for, abdominal pain and fever which started 3 days ago. Vitals in the ER were temperature 101.5?, pulse 101, respiratory rate 20, blood pressure 153/106, pulse ox 98 on room air. Initial white blood cell count 28.2. Abdominal and pelvic CT showed probable pyelonephritis with uterine fibroids. Chest x-ray showed bilateral hyper inflammation no active disease. Head CT was normal. Patient was admitted to the hospitalist service and started on IV antibiotics. Her fever and white blood cell count improved with this therapy. Urine culture grew E coli. Blood cultures are still preliminary but so far are negative and will be monitored until finalized. She had a ultrasound of her kidneys which showed swollen and hyperemic left kidney suspicious for pyelonephritis with central hypoechoic regions of the lower pole which could represent edematous necrotic medullary pyramids. Urology saw the patient and suggested 10 additional days of oral antibiotics at discharge. The day of discharge the patient was asymptomatic and her pain was resolved. She understood the importance of finishing her antibiotics and following up with her primary care physician after this stay. She was educated about the worrisome signs and symptoms come back to emergency room for was discharged in stable condition. She did have hypokalemia during her stay which improved with oral therapy. This was thought to be due to her vomiting and diarrhea which had resolved. No additional supplementation was given. She is to have a BMP in 1 week to ensure this improves. Status at Discharge Functional status at discharge: independent ambulation Overall status at discharge: patient is back to baseline Time Spent with Patient Time attestation: Total time spent providing and/or coordinating discharge services:32 min Time spent: Greater than 30 minutes Exam Narrative: Exam Narrative: General: Well developed well nourished patient resting comfortably in bed in NAD HEENT: normocephalic Neck: supple Neuro: Alert and oriented x4 CV:RRR Resp:CTA Abd: Soft, non distended. No pain to palpation. Positive bowel sounds. Mild CVA tenderness to the left kidney. No ecchymosis Extremities: No swelling, erythema, or pain to palpation. DS: Data Data Completed and Pending Labs on day of discharge: Labs from last 24 hours 11/30/19 11/30/19 11/29/19 05:27 05:27 15:45 WBC 13.4 H RBC 3.56 L Hgb 10.9 L Hct 32.6 L MCV 91.6 MCH 30.6 MCHC 33.4 RDW 13.3 Plt Count 295 MPV 10.6 H Immature Gran % (Auto) 0.4 Neut % (Auto) 75.9 H Lymph % (Auto) 12.4 L [place] % (Auto) 10.4 H Eos % (Auto) 0.5 Baso % (Auto) 0.4 Lymph # (Auto) 1.66 [place] # (Auto) 1.4 H Eos # (Auto) 0.1 Baso # (Auto) 0.1 Abs Immat Gran (auto) 0.05 H Absolute Neuts (auto) 10.2 H Absolute Nucleated RBC 0.0 Nucleated RBC % 0.0 Sodium 133 L Potassium 3.3 L 2.9 L Chloride 101 Carbon Dioxide 27 BUN < 2 L Creatinine 0.50 L Estim Creat Clear Calc 116 Estimated GFR > 60 Glucose 146 H Calcium 8.5 Phosphorus 3.9 Magnesium 1.9 11/29/19 11:25 WBC RBC Hgb Hct MCV MCH
--- NOTE | 2019-12-06 13:38 | PC.NURSE ---
Blood cx is negative.
== END 2019-11-30 11:35 | disposition home or self-care (01) | DRG 872 ==
LOC: ANHED 06:18 → ANH2MED 08:11
PROVIDERS: Physician Assistant; Urology; Admitting Provider Family Medicine; Emergency Provider Emergency Medicine; PCP Internal Medicine; Visit Provider Physician Assistant
DX: A41.9 Sepsis, unspecified organism (principal); N10 Acute pyelonephritis; R64 Cachexia; B96.20 Unspecified Escherichia coli [E. coli] as the cause of diseases classified elsewhere; E87.6 Hypokalemia; D72.829 Elevated white blood cell count, unspecified; Z68.21 Body mass index [BMI] 21.0-21.9, adult; Z87.891 Personal history of nicotine dependence
CPT/HCPCS: 36415; 70450; 71046; 74177; 76770; 80048; 80053; 81001; 83605; 83690; 83735; 84100; 84132; 85025; 85027; 87040; 87077; 87086; 87088; 87186; 94640; 94667; 96365; 96367; 96375; 99285; A9270; J0696; J2270; J2405; J2543; J3480; J7030; Q9967

== ENCOUNTER 2022-07-15 16:43 | Emergency (ER) | payer BC, MEDICAID, SELFPAY ==
[2022-07-15 17:02] VITALS: BP 134/88; PULSE 76; RESP 16; TEMP 36.7; O2SAT 99
--- NOTE | 2022-07-15 17:30 | ED.GENADULT ---
HPI - General Adult General Chief complaint: Urogenital-Female Stated complaint: UTI Time Seen by Provider: 07/15/22 17:31 Source: patient, RN notes reviewed and old records reviewed Mode of arrival: ambulatory Limitations: no limitations History of Present Illness HPI narrative: 47-year-old female presents to the [facility] with concerns for a UTI. Reports a history of kidney infections. Patient's only complaint is that she has had lower back pain. No CVA tenderness. No frequency urgency or burning. Patient complaining of lower back pain for 10-14 days. Related Data Allergies Allergy/AdvReac Type Severity Reaction Status Date / Time No Known Allergies Allergy Unknown Verified 07/15/22 17:35 Review of Systems Review of Systems: All systems reviewed & are unremarkable except as noted in HPI and below Constitutional: Constitutional: Reports no additional constitutional complaints Eyes: Eyes: Reports no additional eye complaints ENT: Reports system reviewed and no additional complaints, except as documented Cardiovascular: Cardiovascular: Reports no additional cardiovascular complaints, Denies chest pain and Denies dyspnea Respiratory: Respiratory: Reports no additional respiratory complaints, Denies chest congestion, Denies cough and Denies dyspnea Gastrointestinal: Gastrointestinal: Reports no additional gastrointestinal complaints, Denies abdominal pain, Denies nausea and Denies vomiting Musculoskeletal: Musculoskeletal: Reports as per HPI and Reports back pain (Low lumbar) Integumentary/Breasts: Skin/Breast: Reports system reviewed and no additional complaints, except as docu Neurologic: Reports system reviewed and no additional complaints, except as documented Psychiatric: Psychiatric: Reports no additional psychiatric complaints Allergic/Immunologic: Allergic/Immunologic: Reports no additional allergic/immunologic complaints [facility] Past Medical History Medical History History of pyelonephritis In 1991 Surgical History Surgical History History of tubal ligation 2000 Family History Family History Mother Kidney abscess Father Hypertension CHF (congestive heart failure) Acute myocardial infarction Passed of acute [place] at age 63; previous to 5 vessel CABG. Social History Social History Social History: Ms. Hahn lives at home and [facility] with her and daughter. 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 She denies alcohol use. Formally smoked one-half pack per day of cigarettes times 10 years, now smokes 1 cigarette maybe every 2 weeks. She uses marijuana in edible form about once per week. No other substance use. Her PCP is Dr. Flower. She designates her , Demarcus, as her surrogate decision maker and she is full code status. Smoking packs per day: 0.5 Smoking cigarettes per day: 10.0 Years smoked: 6 Smoking pack-years: 3.00 Smoking status: Current some day smoker Tobacco type: cigarettes and e-cigarettes/vaping Alcohol intake: never Substance use: current Substance use type: marijuana Living arrangements: with family Gender identity (if verbalized by the patient): Female Spiritual care concerns: No Comments At the time of my signature, I reviewed and agree with the nursing past medical, surgical, social, and family history. There is no relevant family history pertinent to the patient complaint. Exam Const: General: cooperative, healthy appearing, comfortable, no acute distress, well developed, alert and well nourished Nutritional Appearance: well nourished Orientation/consciousness: patient oriented x3 Limitations: no limitations HENMT: Head: normal to inspection Ears: hearing grossly normal bilaterally and external ears
== END 2022-07-15 17:53 | disposition home or self-care (01) ==
PROVIDERS: Emergency Provider Nurse Practitioner; PCP Family Medicine Sports Medicine
DX: M54.50 Low back pain, unspecified (principal); F17.210 Nicotine dependence, cigarettes, uncomplicated; F17.290 Nicotine dependence, other tobacco product, uncomplicated; F12.90 Cannabis use, unspecified, uncomplicated
CPT/HCPCS: 81003; 87086; 99213; G0463

== ENCOUNTER 2023-03-31 15:54 | Emergency (ER) | payer BC, MEDICAID, SELFPAY ==
[2023-03-31 16:06] VITALS: BP 138/101; PULSE 90; RESP 16; TEMP 37; O2SAT 100
--- NOTE | 2023-03-31 16:16 | ED.URI ---
HPI - URI/Sore Throat General Chief Complaint: Upper Respiratory Infection Stated Complaint: congesting,headache Time Seen by Provider: 03/31/23 16:20 Source: patient and RN notes reviewed Mode of arrival: ambulatory Limitations: no limitations History of Present Illness HPI Narrative: 47-year-old female presents with concern for positive COVID test. She reports she began having symptoms on , had a positive test on . She reports she initially had fever, chills, sweats, which have resolved. She currently reports body aches, sinus pressure and congestion. She denies fever MD elicited complaint: nasal congestion Related Data Allergies Allergy/AdvReac Type Severity Reaction Status Date / Time No Known Allergies Allergy Unknown Verified 07/15/22 17:35 Review of Systems Review of Systems: CONSTITUTIONAL: Reports malaise, chills, sweats EYES: Denies visual changes, redness, or discharge. ENT: Reports rhinorrhea, congestion, sinus pain CARDIOVASCULAR: Denies chest pain, palpitations, or edema. RESPIRATORY: Denies cough. Denies dyspnea. GASTROINTESTINAL: Denies abdominal pain, nausea, vomiting, diarrhea SKIN: Denies rash or itching. MUSCULOSKELETAL: Reports myalgia. NEUROLOGIC: Reports headache. All systems reviewed & are unremarkable except as noted in HPI and below PMFSH Past Medical History Medical History History of pyelonephritis In 1991 Surgical History Surgical History History of tubal ligation 2000 Family History Family History Mother Kidney abscess Father Hypertension CHF (congestive heart failure) Acute myocardial infarction Passed of acute [place] at age 63; previous to 5 vessel CABG. Social History Social History Social History: Ms. Hahn lives at home and [facility] with her and daughter. 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 She denies alcohol use. Formally smoked one-half pack per day of cigarettes times 10 years, now smokes 1 cigarette maybe every 2 weeks. She uses marijuana in edible form about once per week. No other substance use. Her PCP is Dr. Flower. She designates her , Demarcus, as her surrogate decision maker and she is full code status. Smoking packs per day: 0.5 Smoking cigarettes per day: 10.0 Years smoked: 6 Smoking pack-years: 3.00 Smoking status: Current some day smoker Tobacco type: cigarettes and e-cigarettes/vaping Alcohol intake: never Substance use: current Substance use type: marijuana Living arrangements: with family Gender identity (if verbalized by the patient): Female Spiritual care concerns: No Comments At time of signature, agree with nursing past medical, surgical, social and family history. There is no relevant family history pertinent to the presenting complaint Exam Narrative: GENERAL: Well-appearing, well-nourished, and in no acute distress. HEAD: Normocephalic EYES: PERRLA, conjunctivae clear ENT: Nares clear, turbinates edematous and erythematous, clear discharge. Mucous membranes moist. TM pearly mera with dull light reflex bilaterally; no tragal tenderness. Oropharynx not erythematous without lesions. Tonsils not enlarged and without exudate, no drooling, no hoarseness, no trismus, uvula midline. NECK: Supple. No lymphadenopathy CHEST: Clear to auscultation, breath sounds equal. No wheezing, rhonchi, rales, or stridor. No respiratory distress, speaks in full sentences. HEART: Regular rate and rhythm. No murmur heard. SKIN: Warm, dry, no rash. NEURO: Alert and oriented x3. PSYCH: Normal mood and affect Course Course Emergency Course: Patient is aware of diagnosis, understands and agrees to treatment plan. Anticipatory guidance given. Patient agrees to fol
== END 2023-03-31 16:34 | disposition home or self-care (01) ==
PROVIDERS: Emergency Provider Nurse Practitioner; PCP Family Medicine Sports Medicine
DX: B34.9 Viral infection, unspecified (principal); F17.210 Nicotine dependence, cigarettes, uncomplicated
CPT/HCPCS: 99213; G0463

== ENCOUNTER 2023-06-29 21:29 | Emergency (ER) | payer BC, SELFPAY ==
[2023-06-29 21:45] VITALS: BP 141/96; PULSE 78; RESP 16; TEMP 36.6; O2SAT 96
[2023-06-29 22:11] VITALS: O2SAT 97
[2023-06-29 22:40] LABS: Strep Group A RT-PCR NOT DETECTED (Negative)
--- NOTE | 2023-06-29 22:46 | ED.URI ---
HPI - URI/Sore Throat General Chief Complaint: Upper Respiratory Infection Stated Complaint: fever, ear pain Time Seen by Provider: 06/29/23 22:11 Source: patient Mode of arrival: ambulatory Limitations: no limitations History of Present Illness HPI Narrative: Patient is a 48-year-old female who presents to the ED with report of URI symptoms. Patient reports having symptoms since Friday, including congestion, rhinorrhea, sinus pressure, sore throat, left ear pain/fullness, low-grade fevers, myalgias. Patient reports her daughter and granddaughter have had similar symptoms. She has been taking [id number] medicines with minimal relief. Denies significant cough, chest pain, shortness of breath. Related Data Allergies Allergy/AdvReac Type Severity Reaction Status Date / Time No Known Allergies Allergy Unknown Verified 06/29/23 22:13 Review of Systems Review of Systems: CONSTITUTIONAL: Denies fever, chills, or sweats. ENT: See HPI. CARDIOVASCULAR: Denies chest pain, palpitations, or edema. RESPIRATORY: Denies cough or dyspnea. MUSCULOSKELETAL: Reports myalgia. All systems reviewed & are unremarkable except as noted in HPI and below PMFSH Past Medical History Medical History History of pyelonephritis In 1991 IBS (irritable bowel syndrome) Lump of right breast Surgical History Surgical History History of tubal ligation 2000 Hx of cholecystectomy Family History Family History Mother Kidney abscess Father Hypertension CHF (congestive heart failure) Acute myocardial infarction Passed of acute [place] at age 63; previous to 5 vessel CABG. Social History Social History Smoking status: Former smoker Tobacco type: cigarettes and e-cigarettes/vaping Alcohol intake: never Substance use: current Substance use type: marijuana Living arrangements: with family Occupation/Education: occupation Gender identity (if verbalized by the patient): Female Spiritual care concerns: No Exam Narrative: GENERAL: Well appearing, well-nourished, non-toxic, in no acute distress. HEAD: Normocephalic, atraumatic. ENT: Mild posterior pharynx erythema, no tonsillar hypertrophy or exudate. Uvula midline. Josue cerumen impaction. No stridor. RESPIRATORY: Airway patent, respirations nonlabored. Clear to auscultation bilaterally, no rales, rhonchi, wheezing. CARDIOVASCULAR: Regular rate and rhythm. MUSCULOSKELETAL: Moves all extremities. No gross deformities. SKIN: Warm, dry, normal color. NEURO: A&O X3. Speech clear. Cranial nerves II-XII grossly intact. No ataxic movements. PSYCHIATRIC: Appropriate mood and affect. Normal interaction. Course Vital Signs Vital signs: Vital Signs Temperature 97.8 F 06/29/23 21:45 Pulse Rate 78 06/29/23 21:45 Respiratory Rate 16 06/29/23 21:45 Blood Pressure 141/96 H 06/29/23 21:45 Pulse Oximetry 96 06/29/23 21:45 Oxygen Delivery Room Air 06/29/23 21:45 Temperature 97.8 F 06/29/23 21:45 Pulse Rate 78 06/29/23 21:45 Respiratory Rate 16 06/29/23 21:45 Blood Pressure 141/96 H 06/29/23 21:45 Pulse Oximetry 97 06/29/23 22:11 Oxygen Delivery Room Air 06/29/23 22:11 MDM - URI/Sore Throat MDM Narrative Medical decision making narrative: Patient presented to ED with several day hx of URI sx's, family members with similar sx's. Viral swabs ordered. Exam with bilateral cerumen impaction. Ears were irrigated with the Debrox ear drops. On re-evaluation, does appear patient has bilateral otitis externa. Difficult to visualize TMs bilaterally due to EAC swelling. Will treat with ofloxacin ear drops. RSV testing resulted positive. Patient updated on plan, supportive management of RSV. Advised
[2023-06-29] MEDS: ACETAMINOPHEN 500 MG TABLET 1000 MG PO (22:47)
[2023-06-29] MEDS: CARBAMIDE PEROXIDE 6.5% OT SOLN 15 ML BTL 5 DROP EACH EAR (22:47)
[2023-06-29 22:52] LABS: Influenza A QL RT-PCR Negative (Negative); Influenza B QL RT-PCR Negative (Negative); RSV RNA, RT-PCR Positive (Negative); SARS-CoV-2 RNA PCR Negative (Negative)
--- NOTE | 2023-06-29 23:10 | PC.NURSE ---
Assumed care of pt from SCHU[facility] at this time.
== END 2023-06-30 00:24 | disposition home or self-care (01) ==
PROVIDERS: Emergency Medicine; Emergency Provider Physician Assistant; PCP Family Medicine Sports Medicine
DX: J06.9 Acute upper respiratory infection, unspecified (principal); B97.4 Respiratory syncytial virus as the cause of diseases classified elsewhere; H61.23 Impacted cerumen, bilateral; H60.503 Unspecified acute noninfective otitis externa, bilateral; Z87.891 Personal history of nicotine dependence; F12.90 Cannabis use, unspecified, uncomplicated; Z20.822 Contact with and (suspected) exposure to COVID-19
CPT/HCPCS: 69209; 87637; 87651; 99283; A9270

== ENCOUNTER 2023-10-04 11:54 | Emergency (ER) | payer BC, SELFPAY ==
[2023-10-04] VITALS (28 sets, daily range): BP systolic 140–177; BP diastolic 86–98; PULSE 70–94; RESP 14–96; TEMP 36.4; O2SAT 92–99
--- NOTE | ~2023-10-04 | CT_ITS ---
EXAMINATION: CT abdomen pelvis w con DATE: 10/04/2023 13:34 INDICATION: Right flank pain with hematuria TECHNIQUE: Computed tomography (CT) of the abdomen and pelvis was performed with 100 mL Omnipaque-350 intravenous contrast. Automated exposure control and iterative reconstruction technique were employe d. The dose-length product was 379.69 mGy-cm. COMPARISON: None FINDINGS: Mild dependent atelectasis in the bilateral lower lobes. Additional mild discoid atelectasis at the l ingula. Heart size is normal. No pericardial or pleural effusion. Status post cholecystectomy. Liver, spleen, pancreas, bilateral adrenal glands and left kidney are normal. There is mild right hydrouret eronephrosis with low-attenuation urine at the renal collecting system and proximal most ureter. Begi nning in the proximal aspect of the dilated right ureter there is abrupt transition to intraluminal w hich extends at least below the level of the sacroiliac joints which could represent either neoplasm, wall thickening or intraluminal clot. No evident urolithiasis. Bowels including the retrocecal appen domi are normal. Bladder is normal. Fibroid uterus, the largest fibroid a 4.0 cm subserosal fibroid at the left posterior lower uterine segment. No free intraperitoneal gas or fluid. No pathologically en larged abdominal or pelvic lymphadenopathy. IMPRESSION: 1. Mild right hydroureteronephrosis without evident obstructing urolithiasis but with prominent incre ased density within the dilated proximal to mid right ureter which could represent either neoplasm, o steolytic wall thickening, intraluminal clot or some combination thereof. Recommend urologic consulta tion and consider retrograde ureteroscopy for further evaluation. 2. Fibroid uterus. Reviewed, dictated and finalized at location A. IMPRESSION: 1. Mild right hydroureteronephrosis without evident obstructing urolithiasis bu t with prominent increased density within the dilated proximal to mid right ure ter which could represent either neoplasm, osteolytic wall thickening, intralum inal clot or some combination thereof. Recommend urologic consultation and cons ider retrograde ureteroscopy for further evaluation. 2. Fibroid uterus.
--- NOTE | 2023-10-04 12:15 | ED.FEMALEGU ---
HPI - Female Genitourinary General Chief complaint: Urogenital-Female <Jairo Handy APRN - Last Filed: 10/05/23 12:21> Stated complaint: Post Chemo Back Pain <Jairo Handy APRN - Last Filed: 10/05/23 12:21> Time Seen by Provider: 10/04/23 12:15 <Jairo Handy APRN - Last Filed: 10/05/23 12:21> Source: patient <Jairo Handy APRN - Last Filed: 10/05/23 12:21> Mode of arrival: ambulatory <Jairo Handy APRN - Last Filed: 10/05/23 12:21> Limitations: no limitations <Jairo Handy APRN - Last Filed: 10/05/23 12:21> History of Present Illness HPI Narrative: Ange is a 48-year-old female patient presenting to the ER today with complaints of abdominal pain and flank pain with urinating bright red blood. States that this started this morning. Denies any fever but has some had some chills and body aches. Rates her pain currently an 8/10. Does have a history of metastatic breast cancer of the right breast and is on HR2. Got her 3rd dose on . Was diagnosed with metastatic breast cancer in March 2023. Oncologist is Dr. Kiel Montenegro at [facility] <Jairo Handy APRN - Last Filed: 10/05/23 12:21> Related Data Home medications: Home Medications Medication Instructions Recorded Confirmed dexamethasone 4 mg tablet 8 mg PO BID 10/05/23 10/05/23 <Jairo Handy APRN - Last Filed: 10/05/23 12:21> Allergies/Adverse reactions: Allergies Allergy/AdvReac Type Severity Reaction Status Date / Time No Known Allergies Allergy Unknown Verified 10/05/23 07:11 <Jairo Handy APRN - Last Filed: 10/05/23 12:21> Review of Systems Review of Systems: Pertinent positives per HPI. Patient denies any fever, chills, rash, headache, visual changes, dizziness, cough, runny nose, sore throat, shortness of breath, chest pain, palpitations, nausea, vomiting, diarrhea, constipation. <Jairo Handy APRN - Last Filed: 10/05/23 12:21> [facility] Past Medical History Medical History: Medical History (Updated 10/06/23 @ 00:00 by Daniel Escobedo) History of pyelonephritis In 1991 IBS (irritable bowel syndrome) Invasive ductal carcinoma of right breast (07/17/23) Lump of right breast <Jairo Handy APRN - Last Filed: 10/05/23 12:21> Surgical History Surgical History: Surgical History H/O right breast biopsy (07/17/23) right breast biopsy with lymph node biopsy High grade invasive ductal carcinoma History of tubal ligation 2000 Hx of cholecystectomy <Jairo Handy APRN - Last Filed: 10/05/23 12:21> Family History Family History: Family History Mother Kidney abscess Father Hypertension CHF (congestive heart failure) Acute myocardial infarction Passed of acute [place] at age 63; previous to 5 vessel CABG. <Jairo Handy APRN - Last Filed: 10/05/23 12:21> Social History Social History: Social History Smoking status: Former smoker Tobacco type: cigarettes and e-cigarettes/vaping Alcohol intake: never Substance use: current Substance use type: marijuana Living arrangements: with family Occupation/Education: occupation Gender identity (if verbalized by the patient): Female Spiritual care concerns: No <RAH Cartagena Last Filed: 10/05/23 12:21> Comments At the time of my signature, I reviewed and agree with the nursing past medical, surgical, social, and family history. There is no relevant family history pertinent to the patient complaint. <Jairo Handy APRN - Last Filed: 10/05/23 12:21> Exam Narrative: General: Well-developed, well nourished, in no apparent distress. Head: Normocephalic, atraumatic. Cardio: Regular rate and rhythm, s1 and
[2023-10-04] MEDS: SODIUM CHLORIDE 0.9% IV 1,000 ML 999 ML IV CONT (12:40)
[2023-10-04] MEDS: ONDANSETRON INJ 4 MG/2 ML VIAL IV PUSH ×2 (12:41→21:10)
[2023-10-04] MEDS: HYDROmorphone HCL INJ (*CRX) 1 MG/ML SYR 0.5 MG IV PUSH ×4 (12:41→21:10)
[2023-10-04 12:45] LABS: Hematocrit 28.3 % (37.0-47.0); Hemoglobin 9.6 g/dL (12.0-15.0); Mean Corpuscular HGB Conc 33.9 g/dl (32-36); Mean Corpuscular Hemoglobin 30.6 pg (26-34); Mean Corpuscular Volume 90.1 fl (80-100); Mean Platelet Volume 9.8 fl (7.4-10.4); Platelet Count Result 342 k/mm3 (150-375); Red Blood Count 3.14 M/mm3 (4.2-5.4); Red Cell Distribution Width 15.3 % (11.5-14.5)
[2023-10-04 12:54] LABS: Alanine Aminotransferase 62 U/L (6-35); Albumin Level 4.3 g/dL (3.5-5.1); Alkaline Phosphatase 91 U/L (38-126); Anion Gap 9 mmol/L (4-12); Aspartate Amino Transferase 42 U/L (14-36); Bilirubin,Total 0.6 mg/dL (0.2-1.3); Blood Urea Nitrogen 19 mg/dL (7-17); Calcium 8.7 mg/dL (8.4-10.2); Carbon Dioxide 25 mmol/L (22-30); Chloride 101 mmol/L (98-107); Estimated CRCL calculation 74 ml/min; Estimated Glomerular Filt Rate > 60; Glucose 110 mg/dL (65-110); Lipase 75 U/L (23-300); Potassium 3.3 mmol/L (3.4-5.0); Sodium 135 mmol/L (137-145)
[2023-10-04 13:08] LABS: White Blood Count 56.4 K/mm3 (4.5-10.0)
[2023-10-04 13:14] LABS: Band Neutrophils Percent 7 % (0-6); Lymphocytes Absolute Manual 0.56 K/mm3 (1.1-4.5); Metamyelocytes Percent 8 %; Neutrophils Absolute Manual 51.32 K/mm3 (1.7-7.2); Neutrophils Percent Manual 84 % (46-73); Platelet Estimate Adequate (Adequate); Schistocytes None Seen; Total Cells Counted 100
[2023-10-04 13:24] LABS: Bacteria Urine Rare /hpf; Need Manual Microscopic Reviewed; RBC Urine >100 /hpf (0-2); Squamous Epithelial Cell Urine None Seen /hpf (Few); WBC Urine >100 /hpf (0-3)
[2023-10-04 13:25] LABS: Appearance Urine Cloudy (Clear); Color Urine Red (Yellow)
[2023-10-04 13:28] LABS: Add Urine Microscopic? YES
[2023-10-04 15:26] LABS: INR 0.9; Prothrombin Time 12.5 Seconds (11.1-14.7)
[2023-10-04 15:27] LABS: Partial Thromboplastin Time 25.4 Seconds (22.3-36.8)
[2023-10-04] MEDS: cefTRIAXone 2 GM/NS 100 ML 2 GM/100 ML BAG IVPB (19:01)
[2023-10-04] MEDS: SODIUM CHLORIDE 0.9% IV 1,000 ML 150 ML IV CONT (19:01)
[2023-10-05] VITALS (9 sets, daily range): BP systolic 143–158; BP diastolic 84–97; PULSE 74–81; RESP 18; TEMP 36.3; O2SAT 95–98
[2023-10-05] MEDS: HYDROmorphone HCL INJ (*CRX) 1 MG/ML SYR 0.5 MG IV PUSH (03:33)
[2023-10-05] MEDS: SODIUM CHLORIDE 0.9% IV 1,000 ML 100 ML IV CONT (03:46)
--- NOTE | 2023-10-05 06:01 | PC.NURSE ---
called [facility] @ 0600-oncology floor is still at capacity and patient is still on waitlist.
[2023-10-05] MEDS: VANCOMYCIN 2,000 MG/NS 500 ML 2,000 MG/500 ML BAG 250 MG IVPB (07:55)
[2023-10-05 07:56] LABS: Hematocrit 28.4 % (37.0-47.0); Hemoglobin 9.8 g/dL (12.0-15.0); Mean Corpuscular HGB Conc 34.5 g/dl (32-36); Mean Corpuscular Volume 89.9 fl (80-100); Mean Platelet Volume 10.2 fl (7.4-10.4); Platelet Count Result 300 k/mm3 (150-375); Red Blood Count 3.16 M/mm3 (4.2-5.4); Red Cell Distribution Width 15.2 % (11.5-14.5); White Blood Count 44.2 K/mm3 (4.5-10.0)
[2023-10-05] MEDS: HYDROmorphone HCL INJ (*CRX) 1 MG/ML SYR IV PUSH ×2 (07:56→11:56)
[2023-10-05] MEDS: ONDANSETRON INJ 4 MG/2 ML VIAL IV PUSH ×2 (07:56→11:58)
[2023-10-05 08:07] LABS: Lactic Acid Reflex 1.7 mmol/L (0.7-2.0)
[2023-10-05 08:09] LABS: Alanine Aminotransferase 52 U/L (6-35); Albumin Level 4.1 g/dL (3.5-5.1); Alkaline Phosphatase 97 U/L (38-126); Anion Gap 9 mmol/L (4-12); Aspartate Amino Transferase 34 U/L (14-36); Bilirubin,Total 0.8 mg/dL (0.2-1.3); Blood Urea Nitrogen 21 mg/dL (7-17); CRP 0.8 mg/dL (<1.0); Calcium 8.9 mg/dL (8.4-10.2); Carbon Dioxide 28 mmol/L (22-30); Chloride 101 mmol/L (98-107); Estimated CRCL calculation 60 ml/min; Estimated Glomerular Filt Rate 59; Glucose 98 mg/dL (65-110); Potassium 3.3 mmol/L (3.4-5.0); Sodium 138 mmol/L (137-145)
[2023-10-05 08:39] LABS: Band Neutrophils Percent 8 % (0-6); Lymphocytes Absolute Manual 2.65 K/mm3 (1.1-4.5); Metamyelocytes Percent 9 %; Myelocytes Percent 2 %; Neutrophils Absolute Manual 36.68 K/mm3 (1.7-7.2); Neutrophils Percent Manual 75 % (46-73); Platelet Estimate Adequate (Adequate); Schistocytes None Seen; Total Cells Counted 100
[2023-10-05 08:40] LABS: Ovalocytes 1+
[2023-10-05] MEDS: dexAMETHasone 4 MG TABLET 8 MG PO (09:20)
--- NOTE | 2023-10-05 09:27 | PC.NURSE ---
[facility] transfer line called and asked for an update on pt. They state that they should have some discharges today and will call when they get a bed
--- NOTE | 2023-10-05 10:51 | PC.NURSE ---
bed update with [facility] beds currently will call when bed is assigned pt remains on waitlist
--- NOTE | 2023-10-05 11:45 | WPDURCON ---
Assessment and Plan Assessment and plan (1) Gross hematuria: Code(s): R31.0 - Gross hematuria Status: Acute Assessment and Plan: patient with new onset gross hematuria starting yesterday after received chemotherapy for metastatic breast cancer 2 days prior as well as Neulasta. Discussed with her the differential diagnosis of hematuria could include infection, inflammation, tumor mass, kidney or bladder stone, or possibly a hemorrhagic phenomenon related to her chemotherapy. from her CT scan it appears most likely source is something within the right ureter kidney. It is possible we are seen within the right upper tract is all clot from a renal or ureteral bleed versus a intraluminal mass which could be a primary neoplasm or in theory metastatic deposit. Given this was not reported on her July [address]23 CT scan I am somewhat encouraged as where this a large neoplastic process That would be a surprisingly rapid development. - trend hemoglobin - hemoglobin by large stable, monitor, hydrate (2) Hydroureteronephrosis: Code(s): N13.30 - Unspecified hydronephrosis Status: Acute Assessment and Plan: mild right hydro with high-density material in the right ureter, it is possible this clot versus a neoplastic process. I discussed with the patient and her family that this likely warrant further investigation. At present I do not see an indication for emergent intervention given her overall clinical stability immunosuppressed state. However should she develop fevers, chills, signs of concern for systemic infection urgent intervention with ureteral stent placement. Assuming that does not develop will likely need interval CT scan and possibly endoscopic evaluation to ensure there is no mass or other concerning finding in the ureter /right upper tract. (3) Right flank pain: Code(s): R10.9 - Unspecified abdominal pain Status: Acute Assessment and Plan: Likely due to obstruction, given time on the development and its correlation with hematuria suspect this may be due to obstructing clot the right upper tract. Would recommend p.r.n. pain control and observation if does not resolve may benefit from stent placement, however renal seen indication for emergent intervention at this point time given the patient is overall stable and pain is reasonably controlled. (4) Leukocytosis: Qualifiers: Leukocytosis type: unspecified Qualified Code(s): D72.829 - Elevated white blood cell count, unspecified Code(s): D72.829 - Elevated white blood cell count, unspecified Status: Acute Assessment and Plan: Patient is on chronic steroids and recently received Neulasta both of which are possible explanation for this. She does have New hydronephrosis, but has not had fevers, UTI symptoms. agree with empiric antibiotics and monitoring cultures. Should she develop signs of systemic infection please notify our service medially and we will re-evaluate for placement of stent. Plan - continue monitoring at [facility] while awaiting transfer to [facility] Urology Consult Note HPI Date Seen: 10/05/23 Primary Care Provider: Tereso Ennis, Consult Narrative Narrative: Ange Hahn is a 48 year old female with history of recently detected metastatic breast cancer undergoing chemo/ immunotherapy at [facility] who presents to the emergency department yesterday with new onset of gross hematuria and right flank pain. Hematuria that started yesterday after receiving chemotherapy and neulasta on . She reports feeling otherwise normal up until yesterday she developed bright red bloody urine this is associated with right flank pain. She denies dysuria, urgency, or other urinary symptoms. She had some chills, has not been documented to have fever. She noted a few small clots in her urine yesterday, today urine continues to be a Jameel-Aid red in color but is thin without clots. She has
== END 2023-10-05 12:20 | disposition short-term general hospital (02) ==
PROVIDERS: Student in an Organized Health Care Education/Training Program; Emergency Provider Nurse Practitioner Family; PCP Family Medicine Sports Medicine
DX: R31.0 Gross hematuria (principal); N13.30 Unspecified hydronephrosis; D72.829 Elevated white blood cell count, unspecified; R10.9 Unspecified abdominal pain; C50.911 Malignant neoplasm of unspecified site of right female breast; C79.9 Secondary malignant neoplasm of unspecified site; Z90.49 Acquired absence of other specified parts of digestive tract; Z87.891 Personal history of nicotine dependence; Z79.60 Long term (current) use of unspecified immunomodulators and immunosuppressants; Z79.899 Other long term (current) drug therapy; D25.9 Leiomyoma of uterus, unspecified
CPT/HCPCS: 36415; 74177; 80053; 81001; 81025; 83605; 83690; 85025; 85610; 85730; 86140; 87040; 87086; 96361; 96365; 96366; 96375; 96376; 99285; J0696; J1170; J2405; J3370; J7030; J8540; Q9967

== ENCOUNTER 2024-04-18 10:14 | Emergency (ER) | payer BC, MEDICARE, SELFPAY ==
[2024-04-18 10:25] VITALS: BP 121/73; PULSE 81; RESP 18; TEMP 36.7; O2SAT 97
--- NOTE | 2024-04-18 10:36 | ED.DENTAL ---
HPI - Dental/Oral General Chief complaint: Dental/Oral Stated complaint: Dental Pain Time Seen by Provider: 04/18/24 10:36 Source: patient, RN notes reviewed and old records reviewed Mode of arrival: ambulatory Limitations: no limitations History of Present Illness HPI Narrative: Patient with active breast cancer, undergoing chemo after recently finishing with radiation, presents today with complaints of left-sided facial swelling secondary to dental infection. She reports that she has had multiple dental extractions secondary to infections since beginning treatment for her breast cancer. States that she began with some left-sided facial swelling yesterday, upon awakening today, she noted that the swelling was worse. She denies any fever, chills, sweats. She has not needed to take any medications for her symptoms. She is managing own secretions, no drooling or stridor noted. Reports that she is able to eat and drink as normal. She reports that she knows that she has a decayed tooth, left bottom. She denies any injury or trauma. Voices no other concerns or complaints today. Related Data Home Medications Medication Instructions Recorded Confirmed albuterol sulfate 90 mcg/actuation 2 puff inhalation Q6-12H 04/18/24 04/18/24 aerosol inhaler lidocaine-prilocaine 2.5 %-2.5 % 1 applic topical DAILY PRN as 04/18/24 04/18/24 topical cream needed to [place] for chemo olanzapine 5 mg tablet 5 mg PO DAILY 04/18/24 04/18/24 ondansetron HCl 8 mg tablet 8 mg PO TID 04/18/24 04/18/24 pantoprazole 40 mg tablet,delayed 40 mg PO DAILY 04/18/24 04/18/24 release Allergies Allergy/AdvReac Type Severity Reaction Status Date / Time No Known Allergies Allergy Unknown Verified 04/18/24 10:17 Review of Systems Review of Systems: All systems reviewed & are unremarkable except as noted in HPI and below Constitutional: Constitutional: Reports as per HPI, Reports no additional constitutional complaints and Denies fever(s) ENT: Reports system reviewed and no additional complaints, except as documented and Reports other (Left lower dental infection, left facial swelling) Cardiovascular: Cardiovascular: Reports no additional cardiovascular complaints Respiratory: Respiratory: Reports no additional respiratory complaints Gastrointestinal: Gastrointestinal: Reports no additional gastrointestinal complaints PMFSH Past Medical History Medical History History of pyelonephritis In 1991 IBS (irritable bowel syndrome) Invasive ductal carcinoma of right breast (07/17/23) Lump of right breast Surgical History Surgical History H/O right breast biopsy (07/17/23) right breast biopsy with lymph node biopsy High grade invasive ductal carcinoma History of tubal ligation 2000 Hx of cholecystectomy Family History Family History Mother Kidney abscess Father Hypertension CHF (congestive heart failure) Acute myocardial infarction Passed of acute [place] at age 63; previous to 5 vessel CABG. Social History Social History Smoking status: Former smoker Tobacco type: cigarettes and e-cigarettes/vaping Alcohol intake: never Substance use: current Substance use type: marijuana Living arrangements: with family Occupation/Education: occupation Gender identity (if verbalized by the patient): Female Spiritual care concerns: No Comments At the time of my signature, I reviewed and agree with the nursing past medical, surgical, social, and family history. There is no relevant family history pertinent to the patient complaint. Exam Const: General: cooperative, no acute distress, alert and awake Orientation/consciousness: oriented to person, oriented to place and oriented to time HENMT: Head: normal to inspection Ears: TM's normal bilaterally Face/Nose/Sinus: No nasal discharge present Face images: 1. Swelling, mild tenderness. No swelling into the neck Mouth: Yes moist mucous membranes Teeth and gingiva: gingiva abnormal with purulent discharge (Surrounding decayed tooth, left lower molar) and poor dentition Resp: Effort & Inspection: normal respiratory effort and able to speak in complete sentences Auscultation: clear to auscultation bilaterally, no crackles, no rales, no rhonchi and no wheezes Cardio: Palpation: normal PMI Rate: regular rate Rhythm: regular rhythm Heart sounds: S1 normal heart sound present and S2 normal heart sound present Neuro: General: oriented to person, oriented to place and oriented to time Cranial nerves: Yes CN's II-XII intact bilaterally Psych: Appearance: grossly normal Thought process: Normal thought process present Insight: Good insight present (Psych) Judgement: Good judgement present (Psych) Course Course Level of Care: Express Care Visit Vital Signs Vital signs: Vital Signs Temperature 98.1 F 04/18/24 10:25 Pulse Rate 81 04/18/24 10:25 Respiratory Rate 18 04/18/24 10:25 Blood Pressure 121/73 04/18/24 10:25 Pulse Oximetry 97 04/18/24 10:25 Oxygen Delivery Room Air 04/18/24 10:25 Temperature 98.1 F 04/18/24 10:25 Pulse Rate 81 04/18/24 10:25 Respiratory Rate 18 04/18/24 10:25 Blood Pressure 121/73 04/18/24 10:25 Pulse Oximetry 97 04/18/24 10:25 Oxygen Delivery Room Air 04/18/24 10:25 Reviewed MDM - Dental/Oral MDM Narrative Medical decision making narrative: Left lower facial swelling secondary to dental infection. Patient immunosuppressed. Not in any distress. Reassuring exam and vital signs. No drooling or stridor. Start clindamycin 3 times daily, patient already on probiotics. Some parts of this dictation were generated by voice recognition software and may contain typographical and/or grammatical inaccuracies. Discharge instructions reviewed with patient, as well as provided in writing per nursing staff. The instructions also include specific and strict return/GO TO THE ER as well as f/u information. All questions have been answered, and the patient deny any further questions with discharge and discharge plan. Differential Diagnosis Differential diagnosis: Likely gingival abscess, dental caries, toothache, dental abscess and fracture of tooth Medical Records Attestation: I reviewed the patient's medical records. Discharge Plan Discharge Clinical Impression: Dental abscess Patient Disposition: Home, Self-Care Condition: Stable Instructions: Antibiotic Form, Dental Abscess (ED) Additional Instructions: Take medications as prescribed. Follow with primary care provider, Oncology, and dentist without fail. Emergency department immediately for new or worse symptoms Prescriptions: New clindamycin HCl [Cleocin HCl] 300 mg capsule 300 mg PO TID Qty: 30 0RF No Action ondansetron HCl 8 mg tablet 8 mg PO TID olanzapine 5 mg tablet 5 mg PO DAILY lidocaine-prilocaine 2.5-2.5 % cream 1 applic topical DAILY PRN (Reason: as needed to [place] for chemo) pantoprazole 40 mg tablet,delayed release (DR/EC) 40 mg PO DAILY albuterol sulfate 90 mcg/actuation HFA aerosol inhaler 2 puff INHALATION Q6-12H Follow-up/Referrals: Loli,Tereso French MD [Primary Care Provider] - Time of Disposition: 10:41
== END 2024-04-18 10:46 | disposition home or self-care (01) ==
PROVIDERS: Emergency Provider Nurse Practitioner Family; PCP Family Medicine Sports Medicine
DX: K04.7 Periapical abscess without sinus (principal); C50.919 Malignant neoplasm of unspecified site of unspecified female breast; Z79.60 Long term (current) use of unspecified immunomodulators and immunosuppressants; Z87.891 Personal history of nicotine dependence; F12.90 Cannabis use, unspecified, uncomplicated
CPT/HCPCS: 99213; G0463

== ENCOUNTER 2024-05-29 12:01 | Emergency (ER) | payer BC, MEDICARE, SELFPAY ==
[2024-05-29 12:11] VITALS: BP 125/66; PULSE 84; RESP 19; TEMP 36.6; O2SAT 98
--- NOTE | 2024-05-29 12:58 | ED.DENTAL ---
HPI - Dental/Oral General Chief complaint: Dental/Oral Stated complaint: Sinus/Dental Pain Time Seen by Provider: 05/29/24 12:59 Source: patient, RN notes reviewed and old records reviewed Mode of arrival: ambulatory Limitations: no limitations History of Present Illness HPI Narrative: Patient presents with complaints of left-sided facial pain and swelling secondary to a dental infection. Patient has had multiple dental infections since starting chemotherapy, she reports that her dentist says that no definitive treatment will be offered until she has completed chemotherapy. She reports that she began with some left-sided tooth pain yesterday, woke up this morning with the left side of her face swollen. Swelling does not extend into the neck. She is able to manage own secretions, no drooling or stridor noted. She has not been taking anything for her symptoms. She denies any injury or trauma. She reports that she is still able to eat and drink without difficulty. Related Data Allergies Allergy/AdvReac Type Severity Reaction Status Date / Time No Known Allergies Allergy Unknown Verified 05/29/24 12:40 Review of Systems Review of Systems: All systems reviewed & are unremarkable except as noted in HPI and below Constitutional: Constitutional: Reports no additional constitutional complaints ENT: Reports system reviewed and no additional complaints, except as documented, Reports as per HPI and Reports dental pain Cardiovascular: Cardiovascular: Reports no additional cardiovascular complaints Respiratory: Respiratory: Reports no additional respiratory complaints Gastrointestinal: Gastrointestinal: Reports no additional gastrointestinal complaints [facility] Past Medical History Medical History History of pyelonephritis In 1991 IBS (irritable bowel syndrome) Invasive ductal carcinoma of right breast (07/17/23) Lump of right breast Surgical History Surgical History H/O right breast biopsy (07/17/23) right breast biopsy with lymph node biopsy High grade invasive ductal carcinoma History of tubal ligation 2000 Hx of cholecystectomy Family History Family History Mother Kidney abscess Father Hypertension CHF (congestive heart failure) Acute myocardial infarction Passed of acute [place] at age 63; previous to 5 vessel CABG. Social History Social History (Reviewed 05/29/24 @ 13:01 by DIANA Marquez Smoking status: Former smoker Tobacco type: cigarettes and e-cigarettes/vaping Alcohol intake: never Substance use: current Substance use type: marijuana Living arrangements: with family Occupation/Education: occupation Gender identity (if verbalized by the patient): Female Spiritual care concerns: No Comments At the time of my signature, I reviewed and agree with the nursing past medical, surgical, social, and family history. There is no relevant family history pertinent to the patient complaint. Exam Const: General: cooperative, no acute distress, alert and awake Orientation/consciousness: oriented to person, oriented to place and oriented to time HENMT: Head: normal to inspection Face images: 1. Left-sided facial swelling that does not extend into the neck associated with dental infection Teeth and gingiva: abnormal tooth and associated gingiva (Left lower) Resp: Effort & Inspection: normal respiratory effort and able to speak in complete sentences Auscultation: clear to auscultation bilaterally, no crackles, no rales, no rhonchi and no wheezes Cardio: Palpation: normal PMI Rate: regular rate Rhythm: regular rhythm Heart sounds: S1 normal heart sound present and S2 normal heart sound present Neuro: General: oriented to person, oriented to place and oriented to time Cranial nerves: Yes CN's II-XII intact bilaterally Psych: Appearance: grossly normal Thought process: Normal thought process present Insight: Good insight present (Psych) Judgement: Good judgement present (Psych) Course Course Level of Care: Express Care Visit Vital Signs Vital signs: Vital Signs Temperature 98 F 05/29/24 12:11 Pulse Rate 84 05/29/24 12:11 Respiratory Rate 19 05/29/24 12:11 Blood Pressure 125/66 05/29/24 12:11 Pulse Oximetry 98 05/29/24 12:11 Oxygen Delivery Room Air 05/29/24 12:11 Temperature 98 F 05/29/24 12:11 Pulse Rate 84 05/29/24 12:11 Respiratory Rate 19 05/29/24 12:11 Blood Pressure 125/66 05/29/24 12:11 Pulse Oximetry 98 05/29/24 12:11 Oxygen Delivery Room Air 05/29/24 12:11 Reviewed MDM - Dental/Oral MDM Narrative Medical decision making narrative: Patient with recurrent dental infection. Nontoxic appearing, stable for discharge home on p.o. antibiotic therapy. Discussed follow-up with dentist and primary care provider. Emergency department for new or worse symptoms. Discharge instructions reviewed with patient, as well as provided in writing per nursing staff. The instructions also include specific and strict return/GO TO THE ER as well as f/u information. All questions have been answered, and the patient deny any further questions with discharge and discharge plan. Some parts of this dictation were generated by voice recognition software and may contain typographical and/or grammatical inaccuracies. Differential Diagnosis Differential diagnosis: Likely gingival abscess, dental caries and dental abscess Medical Records Attestation: I reviewed the patient's medical records. Discharge Plan Discharge Clinical Impression: Dental infection Patient Disposition: Home, Self-Care Condition: Stable Instructions: Antibiotic Form, Dental Abscess (ED) Additional Instructions: Take all medications as prescribed. Follow-up with dentist without fail. Continue to follow with primary care provider. Emergency department for new or worsening symptoms. Be sure to have a very happy birthday on Friday! Patient Language: Uzbek Prescriptions: New clindamycin HCl 300 mg capsule 300 mg PO TID Qty: 30 0RF Follow-up/Referrals: Loli,Tereso French MD [Primary Care Provider] - Stand Alone Forms: Work/School Release IP Time of Disposition: 13:07
== END 2024-05-29 13:10 | disposition home or self-care (01) ==
PROVIDERS: Emergency Provider Nurse Practitioner Family; PCP Family Medicine Sports Medicine
DX: K04.7 Periapical abscess without sinus (principal); Z87.891 Personal history of nicotine dependence
CPT/HCPCS: 99213; G0463